=== PATIENT | female | born 1955 | race Caucasian/White ===

== ENCOUNTER 2017-12-11 19:55 | Emergency (ER) | payer OTHER ==
[~2017-12-11] VITALS: Ht 160 cm; Wt 72.6 kg
--- NOTE | ~2017-12-11 | EKG ---
[address] [address] ELECTROCARDIOGRAM REPORT Name: FUADGARY Noah [id number] Admission: 12/11/17 Attend Phys: Discharge: 12/11/17 Date of : 55 Report #: [id number] THIS REPORT FOR: //name// [facility] ED Test Date: 2017-12-11 Test Time: 20:11:37 Pat Name: GARY MERIDA Department: Room: Gender: F Field Sales Representative: radha : 1955 Requested By: Evens Farfan Order Number: [id number] MD: Jamar Ellis Measurements Intervals [place] Rate: 87 P: 65 LA: 147 QRS: 69 QRSD: 94 T: 54 QT: 395 QTc: 476 Interpretive Statements Sinus rhythm No previous ECG available for comparison Electronically Signed On 12-12-2017 16:55:48 CDT by Jamar Ellis [email or web address] <ELECTRONICALLY SIGNED> By: Jamar Ellis MD 12/12/17 1655 10 10 Jamar Ellis MD /DEBORAH
[2017-12-11] MEDS ORDERED: HYDROXYCHLOROQ200 M1 (20:16)
[2017-12-11 20:32] LABS: ABSOLUTE NEUTROPHILS 4.3 thou/uL (1.4-8.2); BASOPHILS 1.2 % (0.0-2.0); EOSINOPHILS 2.2 % (0.0-3.0); HEMATOCRIT 35.1 % (37.0-47.0); HEMOGLOBIN 12.2 gm/dL (12.0-15.0); LYMPHOCYTES 25.8 % (24.0-44.0); MCH 33.1 pg (26.0-34.0); MCHC 34.7 g/dL (28.0-37.0); MCV 95.3 fL (80.0-100.0); MONOCYTES 9.1 % (1.0-8.0); PLATELET COUNT 254 thou/uL (150-400); POLYS 61.7 % (36.0-66.0); RBC 3.68 mil/uL (4.20-5.00); RDW 13.1 % (10.5-14.5)
[2017-12-11 20:40] LABS: ANION GAP 8 mmol/L (7-16); BUN 10 mg/dL (7-18); CALCIUM 9.9 mg/dL (8.5-10.1); CHLORIDE 100 mmol/L (98-107); CO2 26 mmol/L (21-32); CREATININE 0.7 mg/dL (0.6-1.0); GLUCOSE 121 mg/dL (74-106); POTASSIUM 3.6 mmol/L (3.5-5.1); SODIUM 134 mmol/L (136-145)
[2017-12-11 20:55] LABS: ALBUMIN 4.1 g/dL (3.4-5.0); SGOT 24 U/L (15-37); SGPT 28 U/L (30-65); TOTAL BILIRUBIN 0.4 mg/dL (<0.1-1.0); TOTAL PROTEIN 7.9 g/dL (6.4-8.2); TROPONIN-I <0.06 ng/mL (<0.06)
[2017-12-11 23:06] VITALS: BP 130/68
== END 2017-12-11 23:07 | disposition home or self-care (01) ==
LOC: ER 19:55
PROVIDERS: Emergency Medicine
DX: R07.89 Other chest pain (principal); F17.210 Nicotine dependence, cigarettes, uncomplicated; Z88.1 Allergy status to other antibiotic agents; Z91.040 Latex allergy status; Z88.0 Allergy status to penicillin

== ENCOUNTER 2017-12-12 17:24 | Inpatient (IN) | payer OTHER ==
[~2017-12-12] VITALS: Ht 160 cm; Wt 54.4 kg
--- NOTE | ~2017-12-12 | EKG ---
[address] [address] ELECTROCARDIOGRAM REPORT Name: MELINA MERIDARICIA Noah Room #: 455-P ADM IN M.R.#: [id number] Admission: 12/12/17 Attend Phys: Marty Boston MD Discharge: Date of : 55 Report #: [id number] THIS REPORT FOR: //name// [facility] ED Test Date: 2017-12-12 Test Time: 17:38:56 Pat Name: GARY MERIDA Department: Room: [facility] Gender: F Bagman/Woman: GINNY : 1955 Requested By: Adriel Mendoza Order Number: [id number] MD: Oliver Ellis Measurements Intervals [place] Rate: 83 P: 59 MD: 139 QRS: 52 QRSD: 104 T: 23 QT: 380 QTc: 447 Interpretive Statements Sinus rhythm Nonspecific ST segment abnormality Compared to ECG 12/11/2017 20:11:37 No significant changes Electronically Signed On 12-13-2017 8:35:27 CDT by Oliver Ellis [email or web address] <ELECTRONICALLY SIGNED> By: Oliver Ellis MD, [facility] 12/13/17 0835 1738 1738 Oliver Ellis MD, [facility] /EPI
--- NOTE | ~2017-12-12 | EXE ---
[facility] [employer] [address] STRESS ECHOCARDIOGRAM Name: MERIDAGARY Room #: 455-P [facility] IN ..#: [id number] Admission: 12/12/17 Attend Phys: Marty Boston, Discharge: Date of : 55 Date of Service: 12/13/17 1338 Report #: [id number] THIS REPORT FOR: //name// APPROVED REPORT Study performed: 12/13/2017 12:11:12 Exam: Stress Echocardiogram Indication: Chest pain Patient Location: Echo lab Stress Nurse: Shira Alexis RN Room #: 455 Status: routine Ht: 5 ft 2 in HR: 85 bpm BP: 136/82 mmHg Rhythm: NSR Medical History Cardiac Risk Factors: Smoking Exercise History: Indeterminate Procedure The patient underwent an Exercise Stress Test using the Cirilo Protocol. Blood pressure, heart rate, and EKG were monitored. An Echocardiogram was performed by electron beam photo mask technician in four stages in quad fashion. At peak stress, four selected images were obtained and placed side by side with resting images for comparison. Stress Test Details Stress Test: Exercise stress testing was performed using a Cirilo protocol. HR Resting HR: 85 bpm Max Heart Rate (APMHR): 158 bpm Max HR Achieved: 166 bpm Target HR (85% APMHR): 134 bpm % of APMHR: 105 Recovery HR: 99 bpm HR response to stress: Normal HR response to stress BP Resting BP: 136/82 mmHg Max BP: 178/86 mmHg Recovery BP: 122/74 mmHg ECG [facility] [address] [place] [address] STRESS ECHOCARDIOGRAM Name: MERIDAGARY G Room #: 455-P [facility] IN [facility].#: [id number] Admission: 12/12/17 Attend Phys: Marty Boston, Discharge: Date of : 55 Date of Service: 12/13/17 1338 Report #: [id number] Resting ECG: Sinus Rhythm Stress ECG: Sinus Tachycardia ST Change: Upsloping ST depression did not refill criteria for ischemia Recovery ECG: Sinus Rhythm Clinical Reason for Termination: Maximal effort Exercise duration: 6 min 54 sec Highest Stage Achieved: Stage 3: 3.4 mph at 14% grade. Exercise capacity: 9.5 METs Overall Exercise Capacity for Age: Normal Stress ECG Conclusion 1. Subjectively negative for ischemia 2. Elective cardiographic C negative for ischemia 3. Reduced functional capacity Pre-Stress Echo The resting Echocardiogram showed normal left ventricular contractility with an estimated Ejection Fraction of about >55%. Normal wall motion in all segments on baseline images. Post-Stress Echo The stress Echocardiogram showed normal left ventricular contractility with an estimated Ejection Fraction of about 65-70%. Normal augmentation of wall motion in all segments on post stress images. Clinical Normal augmentation of myocardial wall segments using a 17 segment model. Conclusion Clinical Response: Non-ischemic Exercise Capacity: Below Average Stress ECG Response: Non-ischemic Stress Echo Images: Non-ischemic 1 low risk study No prior study available for comparison. Other Information Study Quality: Good [facility] [address] [address] STRESS ECHOCARDIOGRAM Name: GARY MERIDA Room #: 455-P [facility] IN M.R.#: [id number] Admission: 12/12/17 Attend Phys: Marty Boston, Discharge: Date of : 55 Date of Service: 12/13/17 1338 Report #: [id number] <Conclusion> 1 low risk study <ELECTRONICALLY SIGNED> By: Henrique Laird MD 12/13/178 37 37 Henrique Laird MD /INF
[~2017-12-12 17:24] MED LIST: HYDROXYCHLOROQ200 M1
[2017-12-12 17:25] VITALS: BP 170/91
[2017-12-12 18:00] LABS: ABSOLUTE NEUTROPHILS 5.1 thou/uL (1.4-8.2); BASOPHILS 0.9 % (0.0-2.0); EOSINOPHILS 0.7 % (0.0-3.0); HEMATOCRIT 35.7 % (37.0-47.0); HEMOGLOBIN 12.8 gm/dL (12.0-15.0); LYMPHOCYTES 21.6 % (24.0-44.0); MCH 33.9 pg (26.0-34.0); MCV 94.1 fL (80.0-100.0); MONOCYTES 7.4 % (1.0-8.0); PLATELET COUNT 253 thou/uL (150-400); POLYS 69.4 % (36.0-66.0); RBC 3.79 mil/uL (4.20-5.00); RDW 13.2 % (10.5-14.5); WBC 7.4 thou/uL (4.0-11.0)
[2017-12-12 18:07] LABS: ANION GAP 6 mmol/L (7-16); BUN 7 mg/dL (7-18); CALCIUM 10.2 mg/dL (8.5-10.1); CHLORIDE 99 mmol/L (98-107); CO2 28 mmol/L (21-32); CREATININE 0.7 mg/dL (0.6-1.0); GLUCOSE 129 mg/dL (74-106); POTASSIUM 3.7 mmol/L (3.5-5.1); SODIUM 133 mmol/L (136-145)
[2017-12-12 18:16] LABS: ALBUMIN 4.1 g/dL (3.4-5.0); SGOT 22 U/L (15-37); SGPT 27 U/L (30-65); TOTAL BILIRUBIN 0.4 mg/dL (<0.1-1.0); TOTAL PROTEIN 8.1 g/dL (6.4-8.2); TROPONIN-I <0.06 ng/mL (<0.06)
[2017-12-12 19:38] VITALS: BP 157/80
[2017-12-12 19:48] VITALS: BP 148/77
[2017-12-12 20:05] VITALS: BP 159/90
[2017-12-13 08:00] VITALS: BP 145/89
[2017-12-13 17:21] VITALS: BP 145/89
== END 2017-12-13 19:00 | disposition home or self-care (01) | DRG 313 ==
LOC: ER 17:24 → EROBS 18:47 → 4W 18:47
PROVIDERS: Physician Assistant
DX: R07.89 Other chest pain (principal); R03.0 Elevated blood-pressure reading, without diagnosis of hypertension; E78.00 Pure hypercholesterolemia, unspecified; F17.210 Nicotine dependence, cigarettes, uncomplicated; Z79.899 Other long term (current) drug therapy; Z88.0 Allergy status to penicillin; Z88.8 Allergy status to other drugs, medicaments and biological substances; Z88.1 Allergy status to other antibiotic agents; Z91.040 Latex allergy status; Z71.6 Tobacco abuse counseling
CPT/HCPCS: 10045

== ENCOUNTER → 2017-12-14 | Outpatient (CLI) | payer OTHER | LOC: CAT 14:34 | DX: H53.8 Other visual disturbances (principal); I10 Essential (primary) hypertension ==

== ENCOUNTER → 2018-06-23 | Outpatient (CLI) | payer OTHER ==
[2018-06-23 13:02] LABS: CREATININE 0.6 mg/dL (0.6-1.0)
== END ==
LOC: LAB 12:21
PROVIDERS: Nurse Practitioner
DX: R20.0 Anesthesia of skin (principal)

== ENCOUNTER → 2018-11-01 | Outpatient (CLI) | payer OTHER | LOC: RAD 14:02 | DX: M19.011 Primary osteoarthritis, right shoulder (principal); J84.10 Pulmonary fibrosis, unspecified ==

== ENCOUNTER → 2020-01-17 | Outpatient (CLI) | payer OTHER | LOC: CAT 09:34 | PROVIDERS: ATTEND Nurse Practitioner | DX: Z12.2 Encounter for screening for malignant neoplasm of respiratory organs (principal); Z87.891 Personal history of nicotine dependence ==

== ENCOUNTER → 2020-06-04 | Outpatient (CLI) | payer OTHER | LOC: CAT 11:52 | PROVIDERS: ATTEND Internal Medicine Cardiovascular Disease | DX: Z13.6 Encounter for screening for cardiovascular disorders (principal); E78.00 Pure hypercholesterolemia, unspecified; I25.10 Atherosclerotic heart disease of native coronary artery without angina pectoris ==

== ENCOUNTER 2020-08-21 19:36 | Observation (INO) | payer OTHER, MEDICARE ==
[~2020-08-21] VITALS: Ht 160 cm; Wt 51.7 kg
[2020-08-21 19:39] VITALS: BP 168/97
[2020-08-21 20:12] LABS: ABSOLUTE NEUTROPHILS 4.7 thou/uL (1.4-8.2); BASOPHILS 0.9 % (0.0-2.0); EOSINOPHILS 4.2 % (0.0-3.0); HEMATOCRIT 34.3 % (37.0-47.0); LYMPHOCYTES 23.6 % (24.0-44.0); MCH 33.2 pg (26.0-34.0); MCHC 35.1 g/dL (28.0-37.0); MCV 94.7 fL (80.0-100.0); MONOCYTES 10.1 % (1.0-8.0); PLATELET COUNT 306 thou/uL (150-400); POLYS 61.2 % (36.0-66.0); RBC 3.62 mil/uL (4.20-5.00); WBC 7.8 thou/uL (4.0-11.0)
[2020-08-21 20:22] LABS: ANION GAP 6 mmol/L (7-16); BUN 11 mg/dL (7-18); CALCIUM 9.6 mg/dL (8.5-10.1); CHLORIDE 102 mmol/L (98-107); CO2 26 mmol/L (21-32); CREATININE 0.7 mg/dL (0.6-1.0); GLUCOSE 116 mg/dL (74-106); POTASSIUM 3.4 mmol/L (3.5-5.1); SODIUM 134 mmol/L (136-145)
[2020-08-21 20:32] LABS: ALBUMIN 4.2 g/dL (3.4-5.0); SGOT 23 U/L (15-37); SGPT 27 U/L (14-59); TOTAL BILIRUBIN 0.3 mg/dL (0.2-1.0); TROPONIN-I <0.06 ng/mL (<0.06)
[2020-08-21 21:57] LABS: URINE BILIRUBIN NEGATIVE (Negative); URINE BLOOD 1+ (Negative); URINE CLARITY CLEAR; URINE COLOR YELLOW; URINE GLUCOSE-RANDOM* NEGATIVE (Negative); URINE KETONES TRACE (Negative); URINE LEUKOCYTES-REFLEX TRACE (Negative); URINE NITRITE-REFLEX NEGATIVE (Negative); URINE PROTEIN (DIPSTICK) NEGATIVE (Negative); URINE UROBILINOGEN 0.2 E.U./dl (0.2-1.0)
[2020-08-21 22:00] VITALS: BP 134/75
[2020-08-21 22:09] LABS: BACTERIA-REFLEX None Seen /HPF (None Seen); CASTS None Seen /LPF (None Seen); CRYSTALS None Seen /LPF (None Seen); SQUAMOUS 0-3 Few /LPF (0-3); URINE RBC 1-2 Rare /HPF (NONE SEEN); URINE WBC-REFLEX 0-5 Rare /HPF (0-5)
[2020-08-21 22:22] VITALS: BP 136/72
[2020-08-21 22:52] VITALS: BP 145/87
[2020-08-22 07:21] VITALS: BP 141/86
--- NOTE | 2020-08-22 08:23 | EKG ---
[address] [address] ELECTROCARDIOGRAM REPORT Name: GARY MERIDA Room #: 210-[facility]#: [id number] Admission: 08/21/20 Attend Phys: Marty Boston MD Discharge: Date of : 55 Report #: [id number] [facility] ED Test Date: 2020-08-21 Test Time: 19:51:21 Pat Name: GARY MERIDA Department: Room: [facility] Gender: F Straw Boss: SAL : 1955 Requested By: Jf Vann Order Number: [id number] MD: Heriberto Graham Measurements Intervals [place] Rate: 91 P: 59 PA: 142 QRS: 60 QRSD: 102 T: 22 QT: 383 QTc: 472 Interpretive Statements Sinus rhythm Borderline repolarization abnormality Compared to ECG 12/12/2017 17:38:56 ST (T wave) deviation no longer present Electronically Signed On 08-22-2020 7:03:35 CDT by Heriberto Graham [email or web address] <ELECTRONICALLY SIGNED> By: Heriberto Graham MD, [facility] 06/702 50 50 Heriberto Graham MD, FAC /EPI
[2020-08-22 11:06] VITALS: BP 121/78
--- NOTE | 2020-08-22 11:17 | EXE ---
[facility] [place] [address] STRESS ECHOCARDIOGRAM Name: GARY MERIDA Room #: 210-P [facility] Shonda#: [id number] Admission: 08/21/20 Attend Phys: Marty Boston MD Discharge: Date of : 55 Report #: [id number] THIS REPORT FOR: cc: Marty Boston MD, Neal A. MD Park, Jin S. MD ~ APPROVED REPORT Study performed: 08/22/2020 07:54:19 Exam: Stress Echocardiogram Indication: Chest pain Patient Location: In-Patient Stress Nurse: Elen Lemons RN Room #: 210 Status: routine Ht: 5 ft 3 in HR: 86 bpm BP: 138/82 mmHg Rhythm: NSR Medical History Exercise History: Physically active Procedure The patient underwent an Exercise Stress Test using the Cirilo Protocol. Blood pressure, heart rate, and EKG were monitored. An Echocardiogram was performed by senior mechanical technician in four stages in quad fashion. At peak stress, four selected images were obtained and placed side by side with resting images for comparison. Stress Test Details Stress Test: Exercise stress testing was performed using a Cirilo protocol. HR Resting HR: 86 bpm Max Heart Rate (APMHR): 155 bpm Max HR Achieved: 169 bpm Target HR (85% APMHR): 131 bpm % of APMHR: 109 Recovery HR: 103 bpm HR response to stress: Normal HR response to stress BP Resting BP: 138/82 mmHg Max BP: 172/86 mmHg [facility] [address] [place] [address] STRESS ECHOCARDIOGRAM Name: GARY MERIDA SWETHA Room #: 210-[facility] IN ..#: [id number] Admission: 08/21/20 Attend Phys: Marty Boston, Discharge: Date of : 55 Report #: [id number] Recovery BP: 136/72 mmHg BP response to stress: Normal blood pressure response to stress. ECG Resting ECG: Sinus Rhythm Stress ECG: Sinus Rhythm ST Change: Non-ischemic Clinical Reason for Termination: Maximal effort Exercise duration: 7 min 30 sec Highest Stage Achieved: Stage 3: 3.4 mph at 14% grade. Exercise capacity: 10.1 METs Overall Exercise Capacity for Age: Good Pre-Stress Echo The resting Echocardiogram showed normal left ventricular contractility with an estimated Ejection Fraction of about >55%. The resting echocardiogram demonstrated normal wall motion in all wall segments. Post-Stress Echo The stress Echocardiogram showed normal left ventricular contractility with an estimated Ejection Fraction of about 65-70%. Compared to rest, there were no stress-induced wall motion abnormalities. Conclusion Clinical Response: Non-ischemic Exercise Capacity: Above average Stress ECG Response: Non-ischemic Stress Echo Images: Non-ischemic Colorflow doppler was normal No prior study available for comparison. Other Information Study Quality: Good Technically limited study due to . <Conclusion> Colorflow doppler was normal <ELECTRONICALLY SIGNED> By: Mir Stinson MD 08/22/20 111 16 16 Mir Stinson MD /INF
[2020-08-22 11:27] LABS: CHOLESTEROL 240 mg/dL (<200); HDL CHOLESTEROL 67 mg/dL (>40); LDL CHOLESTEROL 158 mg/dL (<100); TC:HDL 3.6 Ratio (Not establshd); TRIGLYCERIDE 79 mg/dL (<150); VLDL 16 mg/dL (<40)
== END 2020-08-22 14:47 | disposition home or self-care (01) ==
LOC: ER 19:36 → EROBS 22:00 → 2N 22:29
PROVIDERS: Emergency Medicine; Nurse Practitioner Adult Health; ADMIT Family Medicine; ATTEND Family Medicine
DX: R07.89 Other chest pain (principal); E78.00 Pure hypercholesterolemia, unspecified; I10 Essential (primary) hypertension; R00.2 Palpitations; F41.9 Anxiety disorder, unspecified; M32.9 Systemic lupus erythematosus, unspecified; E87.1 Hypo-osmolality and hyponatremia; E87.6 Hypokalemia; Z87.891 Personal history of nicotine dependence; Z79.899 Other long term (current) drug therapy

== ENCOUNTER → 2021-03-10 | Outpatient (CLI) | payer OTHER, MEDICARE | LOC: CAT 08:38 | PROVIDERS: ATTEND Family Medicine | DX: Z12.2 Encounter for screening for malignant neoplasm of respiratory organs (principal); R91.1 Solitary pulmonary nodule; Z87.891 Personal history of nicotine dependence ==

== ENCOUNTER → 2021-03-10 | Outpatient (CLI) | payer OTHER, MEDICARE | LOC: SJCVCIMAG 07:28 | PROVIDERS: ATTEND Internal Medicine Cardiovascular Disease | DX: I07.1 Rheumatic tricuspid insufficiency (principal); I10 Essential (primary) hypertension; I25.10 Atherosclerotic heart disease of native coronary artery without angina pectoris; E78.00 Pure hypercholesterolemia, unspecified; R93.1 Abnormal findings on diagnostic imaging of heart and coronary circulation; M32.9 Systemic lupus erythematosus, unspecified; I73.00 Raynaud's syndrome without gangrene; M35.00 Sjogren syndrome, unspecified; F17.200 Nicotine dependence, unspecified, uncomplicated; Z72.89 Other problems related to lifestyle; Z79.82 Long term (current) use of aspirin; Z79.899 Other long term (current) drug therapy; Z88.0 Allergy status to penicillin; Z88.1 Allergy status to other antibiotic agents; Z88.8 Allergy status to other drugs, medicaments and biological substances ==